=== PATIENT | male | born 1985 | race Caucasian/White ===

== ENCOUNTER 2018-03-01 22:54 | Emergency (ER) | payer MEDICAID, OTHER ==
--- NOTE | 2018-03-01 23:38 | EDM.PDOC ---
ED HPI GENERAL MEDICAL PROBLEM - General Chief Complaint: Abdominal Pain Stated Complaint: RIGHT SIDE ABD PAIN Time Seen by Provider: 03/01/18 23:20 Source of Information: Reports: Patient History Limitations: Reports: No Limitations - History of Present Illness INITIAL COMMENTS - FREE TEXT/NARRATIVE: 32-year-old male with right-sided abdominal pain for the past 3 days. He was hauling and throwing a large panels of wood 3 days ago, does not remember a specific injury but since that time has had persistent pain in the right abdomen. No fevers or chills, no bowel changes, no change with eating. No radiation of pain to the back. Tonight he was on a boat fishing and it was really bothering him so he thought he come in and have it checked. He already has a history of an appendectomy. Onset: Gradual (Over the past 3 days) Location: Reports: Abdomen Quality: Reports: Other (Cramping pressure) Severity: Moderate Improves with: Reports: None Worsens with: Reports: None Associated Symptoms: Reports: No Other Symptoms Right Abdomen Pain Score (Numeric/FACES): 0 - Related Data Allergies Allergy/AdvReac Type Severity Reaction Status Date / Time No Known Allergies Allergy Verified 03/01/18 23:06 Home Meds: Home Meds NK [No Known Home Meds] 03/01/18 [History] Past Medical History - Past Surgical History GI Surgical History: Reports: Appendectomy Musculoskeletal Surgical History: Reports: Other (See Below) Other Musculoskeletal Surgeries/Procedures:: elbow surgery Social & Family History - Tobacco Use Smoking Status *Q: Current Every Day Smoker Years of Tobacco use: 10 Packs/Tins Daily: 0.5 - Caffeine Use Caffeine Use: Reports: Coffee - Recreational Drug Use Recreational Drug Use: No ED ROS GENERAL - Review of Systems Review Of Systems: See Below Constitutional: Denies: Fever, Chills Respiratory: Denies: Shortness of Breath Cardiovascular: Denies: Chest Pain GI/Abdominal: Reports: Abdominal Pain. Denies: Constipation, Diarrhea, Nausea, Vomiting : Reports: No Symptoms Skin: Reports: No Symptoms Neurological: Reports: No Symptoms ED EXAM, GI/ABD - Physical Exam Exam: See Below Exam Limited By: No Limitations General Appearance: Alert, No Apparent Distress Eyes: Bilateral: Normal Appearance Respiratory/Chest: No Respiratory Distress, Lungs Clear Cardiovascular: Regular Rate, Rhythm GI/Abdominal Exam: Normal Bowel Sounds, Soft, Tender (He is fairly tender to palpation in the right upper quadrant and right lateral abdomen, there is no distention or bruising or asymmetry. He has moderate rebound tenderness.) Neurological: Alert, Oriented Psychiatric: Normal Affect, Normal Mood Skin Exam: Warm, Dry Course - Vital Signs Last Recorded V/S: Last Vital Signs Temp 97.9 F 03/01/18 23:07 Pulse 87 03/01/18 23:07 Resp 16 03/01/18 23:07 BP 149/110 H 03/01/18 23:07 Pulse Ox 98 03/01/18 23:07 - Orders/Labs/Meds Labs: Laboratory Tests 03/01/18 03/01/18 Range/Units 23:21 23:21 WBC 8.7 (4.5-11.0) K/uL RBC 5.57 (4.30-5.90) M/uL Hgb 16.0 H (12.0-15.0) g/dL Hct 46.2 (40.0-54.0) % MCV 83 (80-98) fL MCH 29 (27-31) pg MCHC 35 (32-36) % Plt Count 287 (150-400) K/uL Neut % (Auto) 41 (36-66) % Lymph % (Auto) 38 (24-44) % Jenkins % (Auto) 17 H (2-6) % Eos % (Auto) 4 (2-4) % Baso % (Auto) 0 (0-1) % Sodium 138 L (140-148) mmol/L Potassium 3.9 (3.6-5.2) mmol/L Chloride 103 (100-108) mmol/L Carbon Dioxide 25 (21-32) mmol/L Anion Gap 13.9 (5.0-14.0) mmol/L BUN 13 (7-18) mg/dL Creatinine 0.9 (0.8-1.3) mg/dL Est Cr Clr Drug Dosing 126.66 mL/min Estimated GFR (MDRD) > 60 (>60) Glucose 106 (74-106) mg/dL Calcium 8.5 (8.5-10.1) mg/dL Total Bilirubin 0.3 (0.2-1.0) mg/dL AST 38 H (15-37) U/L ALT 90 H (12-78) U/L Alkaline Phosphatase 75 (46-116) U/L Total Protein 7.2 (6.4-8.2) g/dL Albumin 3.7 (3.4-5.0) g/dL Globulin 3.5 (2.3-3.5) g/dL Albumin/Globulin Ratio 1.1 L (1.2-2.2) Lipase 109 (73-393) U/L - Re-Assessments/Exams Free Text/Narrative Re-Assessment/Exam: 03/01/18 23:38 CBC, CMP, lipase were obtained. 03/02/18 00:17 CBC returned normal, CMP also basically normal other than very minimal elevation of ALT and AST. Lipase was normal. Patient was comfortable as long as he was lying still, he complained of discomfort when he got up into a sitting position. This does act more like musculoskeletal abdominal wall discomfort from overuse on Thursday, but if he develops fever or increased pain he needs to return so we can do more evaluation such as imaging. Departure - Departure Time of Disposition: 00:24 Disposition: Home, Self-Care 01 Condition: Good Clinical Impression: Abdominal pain Qualifiers: Abdominal location: right upper quadrant Qualified Code(s): R10.11 - Right upper quadrant pain - Discharge Information Instructions: Abdominal Pain, Adult, [id number] Referrals: PCP,None [Primary Care Provider] - Forms: ED Department Discharge Care Plan Goals: A regular dose of ibuprofen over the next several days will be beneficial. Increase activity as tolerated and return for recheck if you develop fever or increased pain.
== END 2018-03-02 00:24 | disposition home or self-care (01) ==
LOC: JP.ED 22:54
DX: R10.11 Right upper quadrant pain (principal); F17.210 Nicotine dependence, cigarettes, uncomplicated
CPT/HCPCS: 36415; 80053; 83690; 85025; 99284

== ENCOUNTER 2022-01-11 17:08 | Emergency (ER) | payer MEDICAID ==
[2022-01-11] MEDS ORDERED: Lidocaine 1% 5 ML VIAL INJECT ONE (17:46)
[2022-01-11] MEDS ORDERED: Diphtheria,Pertussis(Acell),Tetanus Vaccine 0.5 ML Syringe IM ONE (18:09)
== END 2022-01-11 18:22 | disposition home or self-care (01) ==
LOC: JP.ED 17:08
DX: S60.552A Superficial foreign body of left hand, initial encounter (principal); Z23 Encounter for immunization; W45.8XXA Other foreign body or object entering through skin, initial encounter
CPT/HCPCS: 90471; 90715; 99281; 99283

== ENCOUNTER 2022-08-12 22:46 | Emergency (ER) | payer MEDICAID ==
[2022-08-12] MEDS ORDERED: Labetalol 100 MG Tab PO ONE (23:22)
[2022-08-12] MEDS ORDERED: Ketorolac 30 MG/ML SDV IM ONE (23:22)
[2022-08-12 23:53] LABS: CORONAVIRUS COVID-19 NAA NEGATIVE (NEGATIVE)
[2022-08-13 00:04] LABS: ESTIMATED GFR 100 mL/min (>60); TROPONIN I HIGH SENSITIVITY 7.8 pg/mL (<=60.3)
== END 2022-08-13 00:35 | disposition home or self-care (01) ==
LOC: JP.ED 22:46
DX: I16.0 Hypertensive urgency (principal); I10 Essential (primary) hypertension; F17.210 Nicotine dependence, cigarettes, uncomplicated; Z20.822 Contact with and (suspected) exposure to COVID-19
CPT/HCPCS: 0241U; 36415; 80053; 84443; 84484; 85025; 86140; 87081; 87880; 99284; A9270